=== PATIENT | female | born 1985 ===

== ENCOUNTER 2022-05-25 09:07 | Emergency (ER) | payer BC, OTHER ==
[~2022-05-25] VITALS: Ht 153 cm; Wt 58.0 kg
--- NOTE | 2022-05-25 09:45 | ED EENT ---
History of Present Illness General Chief Complaint: Ear Problems Stated Complaint: NAUSEA | VOMITING | EAR ACHE Nursing Triage Note: pt states bi lat ear ache for about a week, dizziness causing her to vomit (ELLIE WICK) History of Present Illness Date Seen by Provider: May 25, 2022 Time Seen by Provider: 09:30 Initial Comments 37 yo female presents to ED with b/l ear pain since yesterday. Pt kazakh speaking with limited hebrew. Obtained hx from son who translated. Pt reports that she has had a nonproductive cough for a week and after that went away she started experiencing bilateral ear pain yesterday. Rates pain as 10/10. Had difficulty sleeping due to pain and dizziness. Pt says that she is dizzy and feels like the room is spinning. Reports that anytime she eats she vomits 3-4 hours after. Has had 3 episodes of nonbloody vomiting since yesterday. Dizziness occurs all the time and nothing makes it better. Pt has associated nausea, right and left lower quadrant pain, decreased appetite and fluid intake. Denies any sinus pressure, sore throat, CP, SOB, or fevers. No other complaints. (ELLIE WICK) Timing/Duration: other (1 week) Severity: mild Prearrival Treatment: over the counter meds Associated Symptoms: No cough, No fever, No sore throat (JAY MOULTON MD) Allergies and Home Medications Allergies Coded Allergies: No Known Drug Allergies (Unverified , 05/25/22) Patient Home Medication List Home Medication List Reviewed: Yes (ELLIE WICK) Home Medication List Reviewed: Yes (JAY MOULTON MD) Azithromycin (Azithromycin) 250 Mg Tablet, 250 MG PO UD Prescribed by: JAY MOULTON on 05/25/22 1147 Ondansetron (Ondansetron Odt) 4 Mg Tab.rapdis, 4 MG PO Q6H PRN for NAUSEA/VOMITING Prescribed by: JAY MOULTON on 05/25/22 1147 Review of Systems Review of Systems Constitutional: No chills, No diaphoresis; dizziness; No fever; malaise Eyes: No Symptoms Reported Ears: Dizziness, Pain (B/l); Denies Bloody Discharge, Denies Clear Discharge, Denies Purulent Discharge Nose: denies pain, denies bloody discharge, denies clear discharge Mouth: no symptoms reported Throat: no symptoms reported Respiratory: cough; No hemoptysis, No orthopnea, No phlegm, No short of breath Cardiovascular: No chest pain, No edema, No palpitations, No syncope Gastrointestinal: abdominal pain, constipation, nausea, vomiting Musculoskeletal: no symptoms reported Skin: no symptoms reported Neurological: No Symptoms Reported Hematologic/Lymphatic: No Symptoms Reported Immunological/Allergic: no symptoms reported (ELLIE WICK) Ears: Pain (B/l); Denies Bloody Discharge Nose: denies congestion Mouth: denies pain, denies swelling Throat: no symptoms reported Respiratory: cough; No short of breath Gastrointestinal: abdominal pain (Lower abdomen), nausea, vomiting (JAY MOULTON MD) Past Qukulbw-Nuoein-Xnrdzf Hx Patient Social History Tobacco Use?: No Substance use?: No Alcohol Use?: No (ELLIE WICK) Immunizations Up To Date Influenza Vaccine Up-to-Date: Yes; Up-to-Date (ELLIE WICK) Past Medical History Surgery/Hospitalization HX: denies med hx Last Menstrual Period: May 11, 2022 (ELLIE WICK) Physical Exam Vital Signs Vital Signs - First Documented 05/25/22 09:16 Temp 36.9 Pulse 103 Resp 20 B/P (MAP) 137/84 (101) Pulse Ox 98 O2 Delivery Room Air (JAY MOULTON MD) Height, Weight, BMI Height: '" Weight: lbs. oz. kg; 24.00 BMI Method: General Appearance: WD/WN, no apparent distress Eyes: bilateral eye normal inspection, bilateral eye PERRL, bilateral eye EOMI Ears: right ear TM normal; left ear TM red; bilateral ear auricle normal, bilateral ear TM bulging Nose: normal inspection Mouth/Throat: normal mouth inspection, pharynx normal Neck: non-tender, full range of motion, supple, normal inspection; No lymphadenopathy (R), No lymphadenopathy (L) Cardiovascular: regular rate, rhythm, no edema, no gallop, no JVD, no murmur Respiratory: chest non-tender, lungs clear, normal breath sounds, no respiratory distress, no accessory muscle use Gastrointestinal: normal bowel sounds, non tender, soft, no organomegaly, no pulsatile mass 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, no motor/sensory deficits, alert, normal mood/affect, oriented x 3 Skin: normal color, warm/dry Modified [place]-Hallpike maneuver neg b/l (ELLIE WICK) General Appearance: WD/WN, no apparent distress Ears: bilateral ear other (Bilateral TMs red with left greater than right and concern for possible otitis media on the left) Cardiovascular: no murmur, tachycardia Respiratory: lungs clear, normal breath sounds Gastrointestinal: normal bowel sounds, non tender, soft, no organomegaly, no pulsatile mass; No guarding, No rebound, No tenderness Neurologic/Psychiatric: alert, oriented x 3 Skin: normal color, warm/dry (JAY MOULTON MD) Progress/Results/Core Measures Results/Orders Lab Results Laboratory Tests Test 05/25/22 10:55 05/25/22 11:59 Range/Units White Blood Count 16.7 H 4.3-11.0 10^3/uL Red Blood Count 4.75 3.80-5.11 10^6/uL Hemoglobin 14.6 11.5-16.0 g/dL Hematocrit 43 35-52 % Mean Corpuscular Volume 90 80-99 fL Mean Corpuscular Hemoglobin 31 25-34 pg Mean Corpuscular Hemoglobin Concent 34 32-36 g/dL Red Cell Distribution Width 11.1 10.0-14.5 % Platelet Count 273 130-400 10^3/uL Mean Platelet Volume 9.2 9.0-12.2 fL Immature Granulocyte % (Auto) 0 % Neutrophils (%) (Auto) 90 H 42-75 % Lymphocytes (%) (Auto) 7 L 12-44 % Monocytes (%) (Auto) 3 0-12 % Eosinophils (%) (Auto) 0 0-10 % Basophils (%) (Auto) 0 0-10 % Neutrophils # (Auto) 15.0 H 1.8-7.8 10^3/uL Lymphocytes # (Auto) 1.1 1.0-4.0 10^3/uL Monocytes # (Auto) 0.4 0.0-1.0 10^3/uL Eosinophils # (Auto) 0.0 0.0-0.3 10^3/uL Basophils # (Auto) 0.0 0.0-0.1 10^3/uL Immature Granulocyte # (Auto) 0.1 0.0-0.1 10^3/uL Neutrophils % (Manual) 93 % Lymphocytes % (Manual) 7 % Monocytes % (Manual) 0 % Eosinophils % (Manual) 0 % Basophils % (Manual) 0 % Band Neutrophils 0 % Blood Morphology Comment NORMAL Sodium Level 137 135-145 MMOL/L Potassium Level 3.6 3.6-5.0 MMOL/L Chloride Level 104 98-107 MMOL/L Carbon Dioxide Level 22 21-32 MMOL/L Anion Gap 11 5-14 MMOL/L Blood Urea Nitrogen 10 7-18 MG/DL Creatinine 0.64 0.60-1.30 MG/DL Estimat Glomerular Filtration Rate 115 BUN/Creatinine Ratio 16 Glucose Level 109 H 70-105 MG/DL Calcium Level 9.4 8.5-10.1 MG/DL Corrected Calcium 8.5-10.1 MG/DL Total Bilirubin 0.5 0.1-1.0 MG/DL Aspartate Amino Transf (AST/SGOT) 26 5-34 U/L Alanine Aminotransferase (ALT/SGPT) 38 0-55 U/L Alkaline Phosphatase 59 40-136 U/L C-Reactive Protein High Sensitivity 1.07 H 0.00-0.50 MG/DL Total Protein 8.4 H 6.4-8.2 GM/DL Albumin 4.7 H 3.2-4.5 GM/DL Serum Test, Qualitative NEGATIVE NEGATIVE Urine Color YELLOW Urine Clarity CLEAR Urine pH 7.5 5-9 Urine Specific [place] <=1.005 1.016-1.022 Urine Protein NEGATIVE NEGATIVE Urine Glucose (UA) NEGATIVE NEGATIVE Urine Ketones NEGATIVE NEGATIVE Urine Nitrite NEGATIVE NEGATIVE Urine Bilirubin NEGATIVE NEGATIVE Urine Urobilinogen 0.2 < = 1.0 MG/DL Urine Leukocyte Esterase 2+ H NEGATIVE Urine RBC (Auto) NEGATIVE NEGATIVE Urine RBC NONE /HPF Urine WBC 5-10 H /HPF Urine Squamous Epithelial Cells 2-5 /HPF Urine Crystals NONE /LPF Urine Bacteria MODERATE H /HPF Urine Casts NONE /LPF Urine Mucus NEGATIVE /LPF Urine Culture Indicated YES (JAY MOULTON MD) My Orders Orders - JAY MOULTON MD Cbc With Automated Diff (05/25/22 10:45) Comprehensive Metabolic Panel (05/25/22 10:45) Hs C Reactive Protein (05/25/22 10:45) Ondansetron Injection (Zofran Injectio (05/25/22 10:45) Lactated Ringers (Lr 1000 Ml Iv Solution (05/25/22 10:45) Ed Iv/Invasive Line Start (05/25/22 10:45) Ketorolac Injection (Toradol Injection) (05/25/22 10:45) Hcg,Qualitative Serum (05/25/22 10:45) Manual Differential (05/25/22 10:55) Ua Culture If Indicated (05/25/22 11:47) Urine Culture (05/25/22 11:59) (JAY MOULTON MD) Medications Given in ED Current Medications Medications Dose Ordered Sig/Monika Route Start Time Stop Time Status Last Admin Dose Admin Ondansetron HCl 4 mg ONCE ONCE IVP 05/25/22 10:45 05/25/22 10:48 DC 05/25/22 10:57 4 MG (JAY MOULTON MD) Vital Signs/I&O 05/25/22 05/25/22 09:16 10:57 Temp 36.9 36.9 Pulse 103 Resp 20 B/P (MAP) 137/84 (101) Pulse Ox 98 O2 Delivery Room Air (JAY MOULTON MD) Blood Pressure Mean: 101 Progress Progress Note : Time: 11:21 Progress Note Pt was given LR, Toradol 30mg and Zofran at 10:45. Reevaluated patient after medications were given. Pt says she feels slightly better but still weak. (ELLIE WICK) Progress Note : Progress Note I have seen and evaluated the patient and agree with above except as indicated. I have directed the plan of care. Patient is here with ear pain and fullness as well as some intermittent low abdominal pain that is been going on for at least 3 months. Last menstrual period was 2 weeks ago. Has had some nausea and vomiting. Has not taken much for the pain. Here with her son who is helping translate. She states that she feels kind of weak. Discussed different options including outpatient treatment versus further evaluation and she would like some further evaluation. IV, labs including CBC and CMP as well as CRP, LR 1 L bolus, Toradol 30 mg IV, Zofran 4 mg IV ordered. Monitor patient. 1143: Patient doing better. White count is elevated but likely related to vomiting. CRP is only slightly elevated. She states that she feels comfortable going home and would like to do further studies with outpatient appointment if needed. This is reasonable. Discharged home with return precautions. Patient and family verbalized understanding of instructions and agreement with plan. 1233: UA is processed. There is 5-10 whites and 2-5 squames. There are does appear to be some bacteria. Nitrite negative. We will wait for cultures on that. Patient still feeling better. If culture is positive then we will send out new prescription. Otherwise we will continue with treatment for ear infection and nausea. Discharged home with return precautions. Patient and family verbalized understanding instructions and agreement with plan. (JAY MOULTON MD) Departure Impression Primary Impression: Left otitis media Qualified Codes: H66.002 - Acute suppurative otitis media without spontaneous rupture of ear drum, left ear Additional Impression: Nausea and vomiting Qualified Codes: R11.2 - Nausea with vomiting, unspecified Disposition: HOME, SELF-CARE Condition: Improved Departure-Patient Inst. Decision time for Depature: 12:34 (JAY MOULTON MD) Referrals: NO,LOCAL PHYSICIAN (PCP/Family) Primary Care Physician Patient Instructions: Ear Infections (Otitis Media) in Adults (DC), Nausea and Vomiting, Adult ED Add. Discharge Instructions: All discharge instructions reviewed with patient and/or family. Voiced understanding. Take medications as directed. You may take Tylenol/acetaminophen 1000 mg every 6 hours as needed for fever or pain. You may take ibuprofen 600 mg every 8 hours as needed for fever or pain. You may use Afrin nasal spray or the generic, 12 hour relief, 2 sprays to each nostril twice daily for 3 days only and then stop. Do not use more than 3 days. Follow-up with your Dr. in a few days for recheck. Drink plenty of fluids and get plenty of rest. Light or clear diet for 24 hours and then advance as tolerated. Return for worse pain, fever, vomiting, weakness, breathing problems or other concerns as needed. Follow-up with your doctor in a few days for recheck and further evaluation. Scripts Ondansetron (Ondansetron Odt) 4 Mg Tab.rapdis 4 MG PO Q6H PRN for NAUSEA/VOMITING, #12 TAB 0 Refills Prov: JAY MOULTON MD 05/25/22 Azithromycin (Azithromycin) 250 Mg Tablet 250 MG PO UD, #6 TAB TAKE 2 TABLETS ON DAY ONE THEN TAKE 1 TABLET DAILY FOR FOUR MORE DAYS Prov: JAY MOULTON MD 05/25/22 ELLIE WICK May 25, 2022 09:45 JAY MOULTON MD May 25, 2022 11:44
[2022-05-25] MEDS ORDERED: LACTATED RINGERS 1,000 ML IV STA (10:45)
[2022-05-25] MEDS ORDERED: KETOROLAC 30 MG/ML VIAL IVP STA (10:45)
[2022-05-25] MEDS ORDERED: ONDANSETRON 4 MG/2 ML (SDV) Z0FRAN IVP ONE (10:45)
[2022-05-25 11:11] LABS: BASOPHILS % (AUTO) 0 % (0-10); EOSINOPHILS % (AUTO) 0 % (0-10); HEMATOCRIT 43 % (35-52); HEMOGLOBIN 14.6 g/dL (11.5-16.0); LYMPHOCYTES # (AUTO) 1.1 10^3/uL (1.0-4.0); LYMPHOCYTES % (AUTO) 7 % (12-44); MEAN CORPUSCULAR HEMOGLOBIN 31 pg (25-34); MEAN CORPUSCULAR HGB CONC 34 g/dL (32-36); MEAN CORPUSCULAR VOLUME 90 fL (80-99); MEAN PLATELET VOLUME 9.2 fL (9.0-12.2); MONOCYTES # (AUTO) 0.4 10^3/uL (0.0-1.0); MONOCYTES % (AUTO) 3 % (0-12); NEUTROPHILS % (AUTO) 90 % (42-75); PLATELET COUNT 273 10^3/uL (130-400); WHITE BLOOD COUNT 16.7 10^3/uL (4.3-11.0)
[2022-05-25 11:30] LABS: ALANINE AMINOTRANSFERASE 38 U/L (0-55); ALBUMIN 4.7 GM/DL (3.2-4.5); ALKALINE PHOSPHATASE 59 U/L (40-136); BILIRUBIN,TOTAL 0.5 MG/DL (0.1-1.0); BUN/CREATININE RATIO 16; CALCIUM 9.4 MG/DL (8.5-10.1); CARBON DIOXIDE 22 MMOL/L (21-32); CHLORIDE 104 MMOL/L (98-107); CREATININE SERUM 0.64 MG/DL (0.60-1.30); GFR ESTIMATED 115; GLUCOSE 109 MG/DL (70-105); POTASSIUM 3.6 MMOL/L (3.6-5.0); SODIUM 137 MMOL/L (135-145); TOTAL PROTEIN 8.4 GM/DL (6.4-8.2)
[2022-05-25 11:31] LABS: BAND NEUTROPHILS 0 %; BASOPHILS % (MANUAL) 0 %; EOSINOPHILS % (MANUAL) 0 %; LYMPHOCYTES % (MANUAL) 7 %; MONOCYTES % (MANUAL) 0 %; NEUTROPHILS % (MANUAL) 93 %
[2022-05-25 11:32] LABS: RBC MORPH NORMAL
[2022-05-25] MEDS ORDERED: ONDA4TAB11 PO (11:47)
[2022-05-25] MEDS ORDERED: AZIT250T12 PO (11:47)
[2022-05-25 12:02] LABS: BILIRUBIN,URINE NEGATIVE (NEGATIVE); CLARITY,URINE CLEAR; COLOR,URINE YELLOW; GLUCOSE, URINE (UA) NEGATIVE (NEGATIVE); KETONES,URINE NEGATIVE (NEGATIVE); LEUKOCYTE ESTERASE ,URINE 2+ (NEGATIVE); NITRITE,URINE NEGATIVE (NEGATIVE); PH,URINE 7.5 (5-9); PROTEIN,URINE NEGATIVE (NEGATIVE)
[2022-05-25 12:10] LABS: BACTERIA,URINE MODERATE /HPF
[2022-05-25 13:10] VITALS: BP 119/80
== END 2022-05-25 13:10 | disposition home or self-care (01) ==
LOC: EDUNIT# 09:07 → ER 09:12
DX: H66.92 Otitis media, unspecified, left ear (principal); R11.2 Nausea with vomiting, unspecified; R10.9 Unspecified abdominal pain
CPT/HCPCS: 36415; 80053; 81000; 84703; 85007; 85027; 86141; 87088